=== PATIENT | male | born 1975 | race Native Hawaiian/Other Pacific Islander ===

== ENCOUNTER 2019-10-19 15:17 | Emergency (ER) | payer OTHER ==
[~2019-10-19] VITALS: Ht 172.7 cm; Wt 117.9 kg
[2019-10-19] MEDS ORDERED: PROPRANOLOL10 MG PO (15:53)
[2019-10-19] MEDS ORDERED: REMERON SOLTAB30 MG PO (15:54)
[2019-10-19 17:09] LABS: PLATELET COUNT 240 K/uL (142-355)
[2019-10-19 17:21] LABS: POTASSIUM 4.5 mmol/L (3.6-5.2)
[2019-10-19 19:25] VITALS: BP 128/82; TEMP 98.2
== END 2019-10-19 19:25 | disposition home or self-care (01) ==
LOC: ED 15:17
PROVIDERS: Emergency Medicine
DX: G43.909 Migraine, unspecified, not intractable, without status migrainosus (principal)
CPT/HCPCS: 80053; 83735; 85027; 87502; 87651; 96365; 96375; 96376; 99284; J1885; J2175; J2550

== ENCOUNTER 2020-11-13 17:15 | Emergency (ER) | payer OTHER ==
[~2020-11-13] VITALS: Ht 172.7 cm; Wt 117.9 kg
[~2020-11-13 17:15] MED LIST: PROPRANOLOL10 MG PO; REMERON SOLTAB30 MG PO
[2020-11-13 18:45] VITALS: BP 142/87; TEMP 98.3
== END 2020-11-13 19:29 | disposition home or self-care (01) ==
LOC: ED 17:15
DX: G43.909 Migraine, unspecified, not intractable, without status migrainosus (principal); M25.561 Pain in right knee; V03.00XA Pedestrian on foot injured in collision with car, pick-up truck or van in nontraffic accident, initial encounter; Y92.89 Other specified places as the place of occurrence of the external cause
CPT/HCPCS: 90471; 92977; 96372; 99283; G0257; J1200; J2550; J2930